=== PATIENT | female | born 1950 | race American Indian/Alaskan Native ===

== ENCOUNTER 2021-07-08 13:38 | Emergency (ER) | payer BC ==
--- NOTE | 2021-07-08 14:11 | Event Note ---
Date: 07/08/21 The patient was evaluated in the emergency department for symptoms described in the history of present illness. He/she was evaluated in the context of the global COVID-19 pandemic, which necessitated consideration that the patient might be at risk for infection with the virus that causes COVID-19. Institutional protocols and algorithms that pertain to the evaluation of patients at risk for COVID-19 are in a state of rapid change based on information released by regulatory bodies including the CDC and federal and state organizations. These policies and algorithms were followed during the patient's care in the emergency department. Please note that these policies, procedures and recommendations changed on a rapid basis. Medical screening examination note: 71-year-old female, presenting to the ER today with a complaint of syncope, closed head injury, facial abrasion, right hand pain, and knee pain. 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 Detailed history and physical to be performed by oncoming ER provider. Vital Signs 07/08/21 13:51 Temperature 98.6 F Pulse Rate 84 Respiratory 16 Rate Blood Pressure 114/62 O2 Sat by Pulse 100 Oximetry
[2021-07-08] MEDS ORDERED: SODIUM CHLORIDE 0.9% 1000 ML 1,000 ML IV ONE (15:28)
--- NOTE | 2021-07-08 15:39 | XRay Report ---
XR chest 1V ap INDICATION / CLINICAL INFORMATION: syncope. COMPARISON: None available. FINDINGS: SUPPORT DEVICES: None. HEART /PULMONARY VASCULATURE: No significant abnormality. LUNGS / PLEURA: Mildly low lung volumes. There is no focal infiltrate or effusion. No pneumothorax. ADDITIONAL FINDINGS: No significant additional findings. IMPRESSION: Low lung volumes without definite acute cardiopulmonary disease. Signer Name: Juice Hagen MD Signed: 07/08/2021 3:34 PM Workstation Name: [id number]
--- NOTE | 2021-07-08 15:43 | XRay Report ---
Pelvis, single AP view HISTORY: Syncope, right leg pain COMPARISON: None FINDINGS: No acute fracture. No hip dislocation. Mild osteoarthritis of the hip and SI joints. No foc al soft tissue abnormality. IMPRESSION: No acute findings Signer Name: Juice Hagen MD Signed: 07/08/2021 3:39 PM Workstation Name: [id number]
--- NOTE | 2021-07-08 15:43 | XRay Report ---
Right knee, 3 views HISTORY: Right knee pain, syncope COMPARISON: None FINDINGS: Advanced tricompartmental osteoarthritis of the right knee, preferentially involving the me dial compartment, with prominent chondrocalcinosis. No acute fracture or malalignment. No sizable ivett nt effusion. No focal soft tissue abnormality. IMPRESSION: Advanced degenerative arthrosis and/or CPPD deposition of the right knee. No acute findin gs. Signer Name: Juice Hagen MD Signed: 07/08/2021 3:39 PM Workstation Name: [id number]
--- NOTE | 2021-07-08 15:43 | XRay Report ---
Right hand, 3 views HISTORY: Right hand pain, syncope COMPARISON: None FINDINGS: There are small ossific densities at the dorsal base of the right ring finger distal phalan x. Findings are most consistent with avulsion fracture (mallet finger). No other fracture. There is n o joint malalignment. Mild scattered osteoarthritis. IMPRESSION: Avulsion fracture of the dorsal base of the right ring finger distal phalanx (mallet fing er). Signer Name: Juice Hagen MD Signed: 07/08/2021 3:38 PM Workstation Name: [id number]
--- NOTE | 2021-07-08 15:55 | Cat Scan Report ---
CT head/brain wo con INDICATION / CLINICAL INFORMATION: 71 years Female; Syncope closed head injury. TECHNIQUE: Routine CT head without contrast. All CT scans at this location are performed using CT dos e reduction for ALARA by means of automated exposure control. COMPARISON: None. FINDINGS: BRAIN / INTRACRANIAL CONTENTS: There is moderate cerebral white matter disease most consistent with m icrovascular angiopathy. There is mild cerebral atrophy. The ventricular system is correspondingly ap propriate in size and configuration. There is no clear CT evidence of acute intracranial hemorrhage o r significant mass effect. ORBITS: No significant abnormality of visualized orbits. SINUSES / MASTOIDS: No significant abnormality in the visualized paranasal sinuses or mastoid air lexii ls. CRANIOCERVICAL JUNCTION: No significant abnormality. ADDITIONAL FINDINGS: There is a focus of calcification projected along the anterior nasopharyngeal so ft tissues measuring 5-[address] Maxillofacial will be dictated separately. IMPRESSION: 1. 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 2. The CT facial bones will be dictated separately. Signer Name: Robb Vasquez MD Signed: 07/08/2021 3:50 PM Workstation Name: [id number]
--- NOTE | 2021-07-08 16:01 | Cat Scan Report ---
CT MAXILLOFACIAL WITHOUT CONTRAST INDICATION / CLINICAL INFORMATION: fall. TECHNIQUE: All CT scans at this location are performed using CT dose reduction for ALARA by means of automated e xposure control. COMPARISON: None available. FINDINGS: FACIAL BONES: There is mild edema involving the right premaxillary soft tissues. However, there is no clear CT evidence of acute fracture of the facial bones. The orbital luu, sinuses and zygomatic ar ches appear intact. PARANASAL SINUSES: There is minimal mucosal thickening along the inferior left maxillary sinus. The n harpreet septum is essentially midline. ORBITS: The optic globes appear to demonstrate appropriate size and configuration. No significant pos t septal inflammatory changes are identified. VISUALIZED INTRACRANIAL STRUCTURES: The CT brain will be dictated separately. ADDITIONAL FINDINGS: There is a 6 mm focus of calcification projected along the anterior midline naso pharyngeal soft tissues. This finding is fairly well-corticated anteriorly and may be incidental thou gh this calcification is larger than expected related to retention cysts. There is some mild irregula rity of the adjacent soft tissues and correlation would be needed at. IMPRESSION: 1. This mild edema involving the right premaxillary soft tissues without CT ends of acute fracture involving the facial bones. 2. There is 6 cm focus of calcification involving the midline anterior nasopharyngeal soft tissues as detailed above. Signer Name: Robb Vasquez MD Signed: 07/08/2021 3:57 PM Workstation Name: [id number]
[2021-07-08 16:03] LABS: Basophils % (Auto) 0.3 % (0.0-1.8); Eosinophils % (Auto) 0.3 % (0.0-4.3); Hematocrit 36.1 % (30.3-42.9); Hemoglobin 11.8 gm/dl (10.1-14.3); Lymphocytes # (Auto) 1.6 K/mm3 (1.2-5.4); Lymphocytes % (Auto) 21.5 % (13.4-35.0); Mean Corpuscular HGB Conc 33 % (30-34); Mean Corpuscular Volume 84 fl (79-97); Monocytes # (Auto) 0.7 K/mm3 (0.0-0.8); Monocytes % (Auto) 9.3 % (0.0-7.3); Platelet Count 188 K/mm3 (140-440); Red Blood Count 4.28 M/mm3 (3.65-5.03); Red Cell Distribution Width 15.3 % (13.2-15.2)
[2021-07-08 16:21] LABS: Alanine Aminotransferase 9 units/L (7-56); Albumin 4.2 g/dL (3.9-5); BUN/Creatinine Ratio 26; Blood Urea Nitrogen 23 mg/dL (7-17); Calcium 9.6 mg/dL (8.4-10.2); Hemolysis Index 0
[2021-07-08] MEDS ORDERED: IBUPROFEN 800 MG TAB PO ONE (16:36)
--- NOTE | 2021-07-08 17:14 | Emergency Department Report ---
ED Syncope HPI - General Chief Complaint: Syncope Stated Complaint: FALL/FACE/RT HAND/RT KNEE INJURY Time Seen by Provider: 07/08/21 15:24 - History of Present Illness Initial Comments: [place] started to feel nauseous and dizzy. Pt reports she passed out and woke up on the ground. pt has pain to her right face with abrasion and swelling. Pt c/o pain to middle finger on right hand and right knee. No neuro deficit no chest pain no sob Timing/Prior Episodes: no prior history Precipitating Factors: Positive: nausea Context: standing Loss of Consciousness: brief (seconds) Current Symptoms: back to normal - Related Data Allergies/Adverse Reactions: Allergies No Known Allergies Allergy (Verified 07/08/21 13:58) ED Review of Systems ROS: Stated complaint: FALL/FACE/RT HAND/RT KNEE INJURY Other details as noted in HPI Constitutional: denies: chills, fever Eyes: denies: eye pain, eye discharge, vision change ENT: denies: ear pain, throat pain Respiratory: denies: cough, shortness of breath, wheezing Cardiovascular: denies: chest pain, palpitations Endocrine: no symptoms reported Gastrointestinal: denies: abdominal pain, nausea, diarrhea Genitourinary: denies: urgency, dysuria, discharge Musculoskeletal: denies: back pain, joint swelling, arthralgia Skin: denies: rash, lesions Neurological: denies: headache, weakness, paresthesias Psychiatric: denies: anxiety, depression Hematological/Lymphatic: denies: easy bleeding, easy bruising ED Past Medical Hx - Past Medical History Hx Hypertension: Yes Hx Diabetes: Yes Hx Arthritis: Yes - Surgical History Additional Surgical History: C- Section, tonsilectomy - Social History Smoking Status: Never Smoker ED Physical Exam - General Limitations: Physical Limitation General appearance: alert, in no apparent distress - Head Head exam: Present: normocephalic - Expanded Head Exam Expanded Head exam: Present: abrasion - Eye Eye exam: Present: normal appearance - ENT ENT exam: Present: mucous membranes moist - Neck Neck exam: Present: normal inspection - Respiratory Respiratory exam: Present: normal lung sounds bilaterally. Absent: respiratory distress - Cardiovascular Cardiovascular Exam: Present: regular rate, normal rhythm. Absent: systolic murmur, diastolic murmur, rubs, gallop - GI/Abdominal GI/Abdominal exam: Present: soft, normal bowel sounds - Extremities Exam Extremities exam: Present: normal inspection - Expanded Upper Extremity Exam Right Hand Wrist exam: Present: tenderness, deformity - Back Exam Back exam: Present: normal inspection - Neurological Exam Neurological exam: Present: alert, oriented X3 - Psychiatric Psychiatric exam: Present: normal affect, normal mood - Skin Skin exam: Present: warm, dry, intact, normal color. Absent: rash ED Course Vital Signs 07/08/21 07/08/21 13:51 16:22 Temperature 98.6 F Pulse Rate 84 97 H Respiratory 16 18 Rate Blood Pressure 114/62 Blood Pressure 148/63 [Left] O2 Sat by Pulse 100 99 Oximetry ED Medical Decision Making - Lab Data Result diagrams: 07/08/21 15:19 07/08/21 15:19 - EKG Data -: EKG Interpreted by Me EKG shows normal: sinus rhythm Rate: tachycardia - EKG Data Interpretation: no acute changes - Radiology Data Radiology results: report reviewed, image reviewed - Medical Decision Making work up unremarkable , mallet fingr noted on right ring , splinted referred to ortho , pt refused admission Critical care attestation.: If time is entered above; I have spent that time in minutes in the direct care of this critically ill patient, excluding procedure time. ED Disposition Clinical Impression: Syncope, Fall, Facial abrasion, Mallet finger of right finger(s) Disposition: 01 HOME / SELF CARE / HOMELESS Is pt being admited?: No Does the pt Need Aspirin: No Condition: Stable Instructions: Syncope (ED), Mallet Finger, Syncope, [id number] Referrals: CARMEN WEAVER MD [Staff Physician] - 3-5 Days
[2021-07-08 17:15] VITALS: BP 128/65
[2021-07-08 17:24] LABS: Bacteria,Urine 1+ /HPF (Negative); Bilirubin,Urine NEG (Negative); Blood,Urine NEG (Negative); Color,Urine Yellow (Yellow); Mucus,Urine FEW /HPF; Protein,Urine <15 mg/dL mg/dL (Negative)
== END 2021-07-08 19:57 | disposition home or self-care (01) ==
LOC: ED 13:38
DX: S00.81XA Abrasion of other part of head, initial encounter (principal); M20.011 Mallet finger of right finger(s); R55 Syncope and collapse; I10 Essential (primary) hypertension; E11.9 Type 2 diabetes mellitus without complications; M19.90 Unspecified osteoarthritis, unspecified site; Z98.890 Other specified postprocedural states; W19.XXXA Unspecified fall, initial encounter; Y93.89 Activity, other specified; Y92.89 Other specified places as the place of occurrence of the external cause; Y99.8 Other external cause status
CPT/HCPCS: 36415; 70450; 70486; 71045; 72170; 80053; 81001; 82550; 83735; 84443; 84484; 85025; 85610; 93005; 96360; 99285